=== PATIENT | female | born 1980 | race African-American/Black ===

== ENCOUNTER 2025-06-18 20:15 | Emergency (ER) | payer SELFPAY ==
[2025-06-18 20:20] VITALS: BP 155/120
[2025-06-18 20:56] LABS: Hematocrit 36.6 % (37.0-47.0); Hemoglobin 13.4 g/dL (12.0-16.0); Mean Corp Hgb Conc. 36.6 g/dL (33.0-37.0); Mean Corpuscular Volume 81.3 fL (81.0-99.0); Platelet Count 266 10^3/uL (130-400); Red Cell Dist. Width 13.2 % (11.5-14.5)
[2025-06-18 21:06] LABS: ALT (SGPT) 22 U/L (0-35); AST (SGOT) 36 U/L (14-36); Albumin 4.8 g/dl (3.5-5.0); Alkaline Phosphatase 35 U/L (38-126); Blood Urea Nitrogen 14 mg/dl (7-17); Calcium 9.5 mg/dl (8.4-10.2); Carbon Dioxide 22 mmol/L (22-30); Chloride 108 mmol/L (98-107); Glucose 107 mg/dl (70-99); Potassium 3.8 mmol/L (3.5-5.1); Sodium 139 mmol/L (135-145); Total Protein 7.9 g/dl (6.3-8.2); eGFR > 60.00
[2025-06-18 21:08] LABS: Troponin I < 0.012 ng/ml
[2025-06-18 21:31] LABS: Nucleated Red Blood Cells % 0 %
[2025-06-18 21:35] VITALS: BP 141/111
[2025-06-18 21:57] VITALS: BP 129/104
[2025-06-18 22:00] VITALS: BP 134/97
[2025-06-18 22:35] VITALS: BP 134/97
[2025-06-18 23:00] VITALS: BP 142/92
[2025-06-19 00:09] VITALS: BP 129/95
[2025-06-19 00:10] VITALS: BP 129/95
[2025-06-19 01:00] VITALS: BP 129/94
[2025-06-19 01:16] LABS: Troponin I < 0.012 ng/ml
--- NOTE | 2025-06-19 01:32 | ED.GENMED ---
History of Present Illness
General
Chief Complaint: Chest Pain
Source: patient
Exam Limitations: none
Time Seen by Provider: 06/18/25 23:01
Nursing documentation reviewed up to this point in time: agreed with
History of Present Illness
History of Present Illness:
45-year-old female presenting to the emergency department today with concerns of palpitations and discomfort to the right chest and shoulder also was very sweaty at the time took an aspirin via EMS and since has had full resolution of symptoms.
Denies any similar symptoms in the past. No nausea vomiting no history of heart disease.
Review of Systems
Review of Systems
Allergies reviewed?: Yes
All Other Systems: ROS reviewed and negative except as documented in HPI and ROS
Phy Exam
Physical Exam
Physical Exam:
GENERAL: Alert , in no apparent distress
EYE: pupils equal and reactive
NECK: Supple, no significant adenopathy.
ENT: o/p clr, mmm.
CARDIAC: Regular rate and rhythm .
LUNGS: Clear breath sounds bilaterally, no acute respiratory distress, no wheezes/rales/rhonchi
ABDOMEN: Soft, without focal tenderness, no r/g, no cvat
NEUROLOGICAL: Alert and oriented, no focal neuro deficits
SKIN: Warm and dry, skin intact.
MUSCULOSKELETAL: No edema, well perfused.
PSYCH: Normal and appropriate interaction.
Scores
Heart Score for Chest Pain Patients
STEMI patient?: No
History: Slightly or Non-Suspicious
ECG: Normal
Age: </= 45 years
Risk Factors: No Risk Factors
Troponin: </= Normal Limit
Heart Score for Chest Pain Patients: 0
Heart Score Risk: 2.5% MACE over next 6 weeks
Course
Orders/Labs/Results
Orders:
Orders
06/18/25 20:26
Electrocardiogram (*1) Urgent
Reason for Study: Chest Pain
EKG- Treatment ONCE
06/18/25 20:39
Complete Blood Count/With Diff Urgent
Comprehensive Metabolic Panel Urgent
Troponin I Urgent
06/18/25 23:31
Electrocardiogram (*1) Urgent
Reason for Study: Chest Pain
EKG- Treatment ONCE
Troponin I Urgent
Chest [CR Chest - 2 Views ] Urgent
Comment:
Reason For Exam: cp
Abnormal Lab Results
06/18/25
20:39
Hct 36.6 L %
(37.0-47.0)
MPV 12.5 H fL
(7.4-10.4)
Neutrophils % 35.5 L %
(42.2-75.2)
Lymphocytes % 54.8 H %
(20.5-51.1)
Chloride 108 H mmol/L
(98-107)
Glucose 107 H mg/dl
(70-99)
Alkaline Phosphatase 35 L U/L
(38-126)
06/18/25 20:39
06/18/25 20:39
Vital Signs
Initial and Last Documented VS:
Initial Vital Signs
Temp Pulse Resp BP Pulse Ox
98.5 F 114 18 155/120 100
06/18/25 20:20 06/18/25 20:20 06/18/25 20:20 06/18/25 20:20 06/18/25 20:20
Last Documented Vital Signs
Temp Pulse Resp BP Pulse Ox
98.5 F 86 11 129/94 98
06/18/25 22:35 06/19/25 00:10 06/18/25 23:39 06/19/25 01:00 06/19/25 01:15
MDM/Problems Addressed
MDM/Problems Addressed:
45-year-old female presenting to the emergency department today with concerns of palpitations while at work lasted for roughly an hour was diaphoretic and had some discomfort to the right chest and right shoulder. Was given aspirin and route with
full resolution of symptoms at this point. Initially was mildly tachycardic on arrival but otherwise vital signs normal during my assessment. Labs unremarkable troponin negative chest x-ray normal EKG normal. Repeated EKG and troponin unchanged
and negative. Advised for close outpatient follow-up. Return precautions given.
*Pulse Oximetry
SaO2: 98
Oxygen Mode of Delivery: Room air
Patient hypoxic: no (98)
*Critical Care Note
Total Time (30-74mins, 75-104mins- exclusive of procedures): Not Applicable
ED Attending Note
-
Portions of this chart may have been created with voice recognition software.� Occasional wrong word or��sound alike� substitutions may have occurred due to the inherent limitations of voice recognition software.
Discharge Plan
Departure
Patient Disposition: Home (Routine Discharge)
Date of Disposition: 06/19/25
Time of Disposition: 01:33
Patient with high blood pressure during this ER visit?: No
Condition: Good
Covid-19: Not Applicable
Discharge Problem:
Chest pain, Heart palpitations
Instructions: Chest Pain CBC Follow Up
Referrals:
Delvis Gan MD [Family Provider, Family Practice]
Activity Restrictions/Additional Instructions:
You came to the emergency department today with concerns of palpitations and discomfort.. Reassuring assessment. Please follow closely with cardiology and your primary care doctor. Return for any worsening, new or concerning symptoms.
Interventions
Interventions:
*Risk Screen - Suicide Last Done: 06/18/25 22:22
*General Assessment Last Done: 06/18/25 22:22
*Neglect/Abuse Screening Last Done: 06/18/25 22:22
*ED- Fall Risk Assessment Last Done: 06/18/25 22:22
*ED COVID-19 Vaccine History Last Done: 06/18/25 22:22
*ED Influenza Vaccine History Last Done: 06/18/25 22:22
ED- Cardiac Assessment Last Done: 06/18/25 22:25
Discharge Date and Time
Print Language: URDU
== END 2025-06-19 01:58 | disposition home or self-care (01) ==
LOC: EMR 20:15
PROVIDERS: Emergency Medicine; Physician Assistant; EMERGENCY PHYSICIAN Student in an Organized Health Care Education/Training Program; FAMILY PHYSICIAN Family Medicine
DX: R07.9 Chest pain, unspecified (principal); R00.2 Palpitations; R00.0 Tachycardia, unspecified
CPT/HCPCS: 99284; 71046; 80053; 84484; 85025; 93005